=== PATIENT | female | born 1960 | race Caucasian/White ===

== ENCOUNTER 2019-03-12 13:56 | Emergency (ER) | payer OTHER ==
[~2019-03-12] VITALS: Ht 154.9 cm; Wt 57.3 kg
[~2019-03-12 13:56] MED LIST: LEVO50TA7 PO; MECL12.574 PO; ONDA4TAB14 PO; TRAV4OP25 BOTH EYES
[2019-03-12 14:04] VITALS: BP 143/74; PULSE 71; RESP 18; Ht 154.9 cm; Wt 57.3 kg
[2019-03-12] MEDS ORDERED: ONDANSETRON (ODT) 4 MG TAB ODT STA (15:23)
[2019-03-12] MEDS ORDERED: MECLIZINE 12.5 MG TAB PO ONE (15:30)
--- NOTE | 2019-03-12 15:41 | ERD ---
ER Documentation Chief Complaint Chief Complaint DIZZINESS AND VOMITTING HPI This is a 58-year-old female patient who presents emergency room with complaint of dizziness that started yesterday when she went to get out of bed, patient states the room started spinning and has had intermittent dizziness since yesterday. No weakness, no slurred speech, no visual deficits. Patient states she had episode one time 2 weeks before when she also was experiencing URI type symptoms. No chronic medical problems. Patient with no pronator drift, clear speech, steady gait at time of evaluation. Denies fevers, no dysuria, nausea when turning head to the left with start of vertigo. ROS All systems reviewed and are negative except as per history of present illness. Medications Home Meds Active Scripts Meclizine Hcl* (Antivert*) 12.5 Mg Tab, 25 MG PO Q6H PRN for DIZZINESS for 10 Days, #20 TAB Prov:KIANNA SAEED CHEMISTRY LECTURER 03/12/19 Ondansetron (Ondansetron Odt) 4 Mg Tab.rapdis, 4 MG PO Q6H PRN for NAUSEA AND/OR VOMITING for 5 Days, #10 TAB Prov:KIANNA SAEED CHEMISTRY LECTURER 03/12/19 Reported Medications Travoprost* (Travatan*) 0.004%-2.5 Ml Opht, 1 DROP BOTH EYES HS, EA 08/07/14 Levothyroxine Sodium* (Levothyroxine Sodium*) 50 Mcg Tablet, 50 MCG PO DAILY, TAB 08/07/14 Allergies Allergies: Coded Allergies: No Known Drug Allergies (Verified Allergy, Mild, 08/06/14) PMhx/Soc History of Surgery: No Anesthesia Reaction: No Hx Neurological Disorder: Yes (CVA X 2 in 2011) Hx Respiratory Disorders: No Hx Cardiac Disorders: No Hx Psychiatric Problems: No Hx Miscellaneous Medical Probl: Yes (GLAUCOMA, HYPOTHYROIDISM) Hx Alcohol Use: No Hx Substance Use: No Hx Tobacco Use: No Smoking Status: Never smoker FmHx Family History: No diabetes, No coronary disease, No other Physical Exam Vitals Vital Signs Date Temp Pulse Resp B/P (MAP) Pulse Ox O2 O2 Flow FiO2 Time Delivery Rate 03/12/19 98.4 71 18 143/74 96 14:04 (97) Physical Exam Const: No acute distress Head: Atraumatic Eyes: Normal Conjunctiva, PERRL, +left nystagmus ENT: Normal External Ears, Nose and Mouth. Pharynx pink, moist, no lesions, no exudate, no petechiae Neck: Full range of motion. No meningismus. No lymphadenopathy Resp: Clear to auscultation bilaterally Cardio: Regular rate and rhythm, no murmurs Abd: Soft, non tender, non distended. Normal bowel sounds Skin: No petechiae or rashes Back: No midline or flank tenderness, no CVT Ext: No cyanosis, or edema Neur: Awake and alert, CN II-XII intact, clear speech, steady gait, neg Romberg Psych: Normal Mood and Affect Results 24 hrs Current Medications Medications Dose Sig/Xiao Start Time Status Last (Trade) Ordered Route PRN Stop Time Admin Dose Reason Admin Meclizine 25 mg ONCE ONCE 03/12/19 DC 03/12/19 HCl PO 15:30 03/12/19 15:37 (Antivert) 15:31 Ondansetron 4 mg ONCE STAT 03/12/19 DC 03/12/19 HCl (Zofran ODT 15:23 03/12/19 15:37 Odt) 15:25 Procedures/MDM PROCEDURES/MDM -Medications: Zofran, meclizine Patient tolerated medication well with no adverse reactions. Patient reported improvement in nausea. MDM: This is a 58-year-old female patient presents emergency room with complaint of vertigo type symptoms where she complains of room spinning sensation when she moves her head to the left starting yesterday upon getting out of bed. Patient states she also had recent URI type symptoms. Patient symptoms not 100% resolved but markedly improved with use of Zofran and meclizine. Patient states she feels safe to go home at this time and follow-up with primary care visit physician. Patient has been given instructions on use of meclizine and Soha maneuver. Clinical and diagnostic exam not suggestive of infection, intracranial process, SAH, SDH, neoplasm, meningitis, encephalitis, aneurysm, thrombus, temporal arteritis, sinusitis. The patient has been provided with instructions on self-care including use of analgesia, reducing triggers, and need for close follow-up with primary care physician within 1-2 days for reevaluation. The patient has been instructed to return immediately for worsening symptoms, change in pattern of current symptoms, or other acute problems. DISPOSITION and PLAN: RX: Meclizine, Zofran The patient has been discharge home to follow-up with community physician. Departure Diagnosis: Primary Impression: BPPV (benign paroxysmal positional vertigo) Laterality: left Qualified Codes: H81.12 - Benign paroxysmal vertigo, left ear Condition: Stable KIANNA SAEED NP Mar 12, 2019 15:41
== END 2019-03-12 17:43 | disposition home or self-care (01) ==
LOC: FTE 13:56
DX: H81.12 Benign paroxysmal vertigo, left ear (principal); R11.10 Vomiting, unspecified
CPT/HCPCS: Z7502; Z7610; 99283